=== PATIENT | female | born 1960 | race Caucasian/White ===

== ENCOUNTER 2023-07-07 07:42 | Emergency (ER) | payer BC, SELFPAY ==
[2023-07-07 07:46] VITALS: BP 132/67; PULSE 78; RESP 17; TEMP 36.1; O2SAT 94; BMI 41.6
--- NOTE | 2023-07-07 07:50 | ED_ITS ---
HPI - Headache General Chief Complaint: Headache Stated Complaint: Pain in Back of Head Time Seen by Provider: 07/07/23 07:50 Source: patient Mode of arrival: ambulatory Limitations: no limitations History of Present Illness HPI Narrative: 63 yo female with a PMHx significant for obesity , presents to the ED with a complaint of R sided posterior head pain and R neck pain x1 week. Reports waking up with dull, constant pain. Feels like the right side of her neck is tight. Has tried tylenol which relieves the pain however it never completely resolves. Ambulating independently. Reports hx of headaches however this feels different. Denies trauma, injury, or falls. Denies dizziness, fever, chills, vision changes, cp/sob, LE swelling/pain. MD elicited complaint: headache Related Data Previous Rx's Medication Instructions Recorded ketorolac 10 mg tablet 10 mg PO TID PRN pain 5 days #15 07/07/23 tabs lidocaine 5 % topical patch 1 patch topical DAILY PRN pain 07/07/23 (scale score 4-6) #15 ea Allergies Allergy/AdvReac Type Severity Reaction Status Date / Time No Known Allergies Allergy Verified 07/07/23 07:45 [No Known Allergies*] Review of Systems Review of Systems: Constitutional : No Weight loss, No Fever, No Chills, No Fatigue ENT/Mouth : No sore throat, No Rhinorrhea Eyes: No Eye Pain, No Swelling, No Redness Cardiovascular : No Chest Pain, No SOB, No Dyspnea on Exertion, No Orthopnea Respiratory : No Cough, No Sputum, No Wheezing Gastrointestinal : No Nausea, No Vomiting, No Diarrhea, No Constipation Genitourinary : No Dysuria, No Urinary Frequency, No Hematuria, Musculoskeletal : No joint pain, No Myalgias, No Joint Swelling, + neck pain Skin : No Skin Lesions, No rash Neuro : No Weakness, No Numbness, No Dizziness, + Headache All other systems reviewed and are negative Yes all other systems are reviewed and are negative [facility] Past Medical History Attestation statement: The following information was validated with the patient. Source: old records reviewed and nursing notes reviewed Social History Social History Alcohol intake: current Alcohol intake frequency: holidays/special occasions only Smoked in Last 30 Days: No Use of substances other than those prescribed or required for medical reasons: No Advance Directives: No Advance Directives Information Provided: No Physical Exam Vital Signs: Vital Signs: Last Vital Signs Temp 97 F 07/07/23 07:46 Pulse 68 07/07/23 09:04 Resp 17 07/07/23 09:04 BP 116/65 07/07/23 09:04 Pulse Ox 95 07/07/23 09:04 O2 Del Method Room Air 07/07/23 09:04 BMI result Body Mass Index 41.6 Appearance: Alert. Oriented X3. No acute distress.? No accessory muscle use Head: Normal external exam. Normocephalic. Atraumatic. ? Eyes: PERRLA. EOMI. Conjunctiva and sclera normal. Eyelids normal. ? Neck: ?Soft full range of motion, no JVD CVS: ?Heart regular rate and rhythm no murmurs and rubs Respiratory: ?Breath sounds are clear to auscultation bilaterally. No wheezing or stridor.? No accessory muscle use noted. Abdomen: ?Soft nontender no rebound or guarding positive bowel sounds Skin: Skin warm and dry.? Normal skin color.? Normal skin turgor. No rashes/lesions/lacerations noted. Extremities: No lower extremity edema. ? Extremities exhibit normal range of motion.? Extremities nontender. Neuro: Oriented X 3.? No motor deficit.? No sensory deficit.? Reflexes normal. Normal finger to nose, heel to gimenez. Ambulating with steady gait. Course Reevaluation(s) Reevaluation #1: On reevaluation, patient's pain is decreased after recieving toradol and lidocine patch. She states that her friend drove her here today > will give a dose of flexeril and reevaluate. Time: 08:52 Reevaluation #2: On re-evaluation patient states that her pain is manageable with the Toradol and lidocaine patch. She is declining the Flexeril at this time. She states that she is comfortable to be discharged home on Toradol lidocaine patch. Patient's pain has improved. Stable for discharge with PCP follow-up. Patient agreeable to plan. Time: 09:03 Medications Administered Discontinued Medications Generic Name Dose Route Start Last Admin Trade Name Freq PRN Reason Stop Dose Admin Ketorolac Tromethamine 30 mg 07/07/23 08:07 07/07/23 08:35 Ketorolac Tromethamine 15 Mg/Ml Vial IM 07/07/23 08:08 30 mg ONCE ONE Administration Lidocaine 1 patch 07/07/23 08:07 07/07/23 08:36 Lidocaine 4 % Patch Adh..Patch TRANSDERMA 07/07/23 08:08 1 patch ONCE ONE Administration Protocol Medical Decision Making Medical Decision Making [facility] Narrative: 0800 63 yo female presenting with posterior headache and right neck pain/stiffness x1 wk Physical exam with unremarkable cerebellar exam, ambulating with steady gait. No focal neuro deficits. Likely headache vs migraine vs musculoskeletal pain. Unlikely CVA, ICH, posterior stroke, meningitis, encephalitis. Plan: pain control, reevaluation Differential Diagnosis Differential Diagnoses: The differential diagnosis associated with the presentation includes migraine, KENDALL, musculoskeletal pain, unlikely cerebellar stroke, CVA, ICH, meningitis, encephalitis Admission/Observation Consideration of admission/observation: Escalation of care including admission/observation considered No indication. Tests considered The following testing was considered but not selected: Considered ordering CT head however no hx of trauma/ injury, no focal neuro deficits Prescription Management I considered prescription management with: Pain Medication Core Measures AMI core measures followed: Yes Measure exclusions: not indicated Discharge Plan Discharge Clinical Impression: Musculoskeletal neck pain, Headache Patient Disposition: Home, Self-Care Instructions: Chronic Neck Pain (DC) Additional Instructions: Take your medications as prescribed. If you were prescribed antibiotics today, it is important that you take your medication to their entirety, do not skip any doses, do not finish them early. Follow-up with your primary care provider this week. Return to the emergency department with new or worsening symptoms. Such as fevers, chills, chest pain, shortness of breath, nausea, vomiting, dizziness, headache, vision changes, lethargy In case of emergency call 911 Toradol has been sent to your pharmacy, you tolerated this well in the department. Please take this as prescribed do not take this with ibuprofen, or other NSAIDs, do not mix this with alcohol. Side effects of this medication including increased risk for bleeding and possible kidney injury. Prescriptions: New ketorolac 10 mg tablet 10 mg PO TID PRN (Reason: pain) 5 Days Qty: 15 0RF lidocaine 5 % adhesive patch,medicated 1 patch topical DAILY PRN (Reason: pain (scale score 4-6)) Qty: 15 0RF Rx Instructions: leave on most painful area for up to 12 hrs Referrals: James Gar MD [Primary Care Provider] -
[2023-07-07] MEDS: Ketorolac Tromethamine 15 MG/ML VIAL 30 MG IM (08:35)
[2023-07-07] MEDS: Lidocaine 4 % Patch ADH..PATCH 1 PATCH TRANSDERMA (08:36)
--- NOTE | 2023-07-07 08:48 | PC.NURSE ---
pt a&ox3. respirations even and unlabored. pt reporting a constant headache for one week in the back of her head that radiates into her upper back. pt denies nausea, vomiting and chest pain. pt neuro in tact.
[2023-07-07 09:04] VITALS: BP 116/65; PULSE 68; RESP 17; O2SAT 95
== END 2023-07-07 09:16 | disposition home or self-care (01) ==
PROVIDERS: Emergency Provider Student in an Organized Health Care Education/Training Program; PCP Internal Medicine
DX: R51.9 Headache, unspecified (principal); M54.2 Cervicalgia
CPT/HCPCS: 96372; 99284; J1885